=== PATIENT | female | born 1970 | race Caucasian/White ===

== ENCOUNTER → 2017-06-20 | Outpatient (CLI) | payer BC ==
--- NOTE | 2017-06-20 14:47 | US ---
EXAMINATION TYPE: US venous doppler duplex LE LT DATE OF EXAM: 06/20/2017 2:39 PM COMPARISON: NONE CLINICAL HISTORY: R60.0 Left leg edema. Pain and edema left leg SIDE PERFORMED: Left TECHNIQUE: The lower extremity deep venous system is examined utilizing real time linear array sonog bharath with graded compression, doppler sonography and color-flow sonography. VESSELS IMAGED: External Iliac Vein (EIV) Common Femoral Vein Deep Femoral Vein Greater Saphenous Vein * Femoral Vein Popliteal Vein Small Saphenous Vein * Proximal Calf Veins (* superficial vessels) Left Leg: No evidence of DVT IMPRESSION: 1. No deep venous thrombosis left lower extremity by ultrasound.
== END | disposition home or self-care (01) ==
LOC: RADUSWWP 14:08
PROVIDERS: ATTEND Family Medicine
DX: R60.0 Localized edema (principal)

== ENCOUNTER → 2017-07-28 | Outpatient (CLI) | payer BC ==
--- NOTE | 2017-07-29 09:14 | MM ---
Reason for exam: screening (asymptomatic). Last mammogram was performed 1 year ago. History: Patient is postmenopausal. Took hormonal contraceptives for 3 years beginning at age 15. Physical Findings: A clinical breast exam by your physician is recommended on an annual basis and results should be correlated with mammographic findings. MG Screening Mammo w CAD Bilateral CC and MLO view(s) were taken. Prior study comparison: July 26, 2016, bilateral MG screening mammo w CAD. May 18, 2014, bilateral MG screening mammo w CAD. There are scattered fibroglandular densities. Finding: There are typically benign round calcifications in both breasts. There is no discrete abnormality. ASSESSMENT: Benign, BI-RAD 2 RECOMMENDATION: Routine screening mammogram of both breasts in 1 year.
== END | disposition home or self-care (01) ==
LOC: RADMAMWWP 10:00
PROVIDERS: ATTEND Family Medicine
DX: Z12.31 Encounter for screening mammogram for malignant neoplasm of breast (principal)

== ENCOUNTER 2019-12-13 09:44 | Day surgery (SDC) | payer BC ==
[2019-12-08 16:22] VITALS: BMI 44.2
[~2019-12-13 09:44] MED LIST: LACTATED RINGERS 1,000 ML IV SCH; LIDOCAINE 1% 20 ML VIAL (10MG/ML) FOR IV START INTRADERMA PRN
[2019-12-13 10:48] VITALS: RESP 16; TEMP 98.5
[2019-12-13] MEDS ORDERED: PROPOFOL 10 MG/ML 20 ML VIAL IV ONE (11:53)
--- NOTE | 2019-12-13 12:13 | P.PCN ---
Date of Procedure: 12/13/19 Description of Procedure: BRIEF HISTORY: Patient is a 49-year-old female presenting for outpatient colonoscopy for screening for malignant neoplasm colon. Denies any change in bowel habits, abdominal pain or blood per rectum. No family history of colon cancer. No prior colonoscopies. PROCEDURE PERFORMED: Colonoscopy. PREOPERATIVE DIAGNOSIS: Screening for malignant neoplasm of the colon, no prior colonoscopies. ESTIMATED BLOOD LOSS: Minimal. IV sedation per Anesthesia. PROCEDURE: After informed consent was obtained, the patient, was brought into the endoscopy unit. IV sedation was administered by Anesthesia under continuous monitoring. Digital rectal examination was normal. Initially the Olympus CF-190 flexible video colonoscope was then inserted in the rectum, gradually advanced into the cecum without any difficulty. Careful examination was performed as the scope was gradually being withdrawn. Ileocecal valve and the appendiceal orifice were visualized and appeared normal. Prep was excellent. Mucosa of the cecum, ascending colon, transverse colon, descending colon, sigmoid colon, and rectum appeared normal. A few small diverticula noted in the sigmoid colon. Retroflexion was performed in the rectum and no lesions were seen. The patient tolerated the procedure well. IMPRESSION: Normal-appearing colon from rectum to cecum. Mild sigmoid diverticulosis. RECOMMENDATIONS: Findings of this examination were discussed with the patient. Okay to resume high-fiber diet. Okay to resume medications. Would recommend repeat colonoscopy in 10 years or sooner if signs or symptoms which for further evaluation develop.
[2019-12-13 12:38] VITALS: BP 138/70; PULSE 51
== END 2019-12-13 12:51 | disposition home or self-care (01) ==
LOC: ORWHC2ENDO 09:44
PROVIDERS: ATTEND Internal Medicine
DX: Z12.11 Encounter for screening for malignant neoplasm of colon (principal); K57.30 Diverticulosis of large intestine without perforation or abscess without bleeding; Z90.710 Acquired absence of both cervix and uterus; E66.01 Morbid (severe) obesity due to excess calories; Z68.41 Body mass index [BMI] 40.0-44.9, adult; F17.200 Nicotine dependence, unspecified, uncomplicated
CPT/HCPCS: J2704; G0121

== ENCOUNTER → 2020-03-30 | Outpatient (CLI) | payer BC ==
--- NOTE | 2020-04-04 11:02 | MM ---
Reason for exam: screening (asymptomatic). Last mammogram was performed 2 years and 8 months ago. History: Patient is postmenopausal. Took hormonal contraceptives for 3 years beginning at age 15. Physical Findings: A clinical breast exam by your physician is recommended on an annual basis and results should be correlated with mammographic findings. MG 3D Screening Mammo W/Cad Bilateral CC, MLO, and XCCL view(s) were taken. Prior study comparison: July 28, 2017, bilateral MG screening mammo w CAD. July 26, 2016, bilateral MG screening mammo w CAD. There are scattered fibroglandular densities. No significant changes when compared with prior studies. ASSESSMENT: Negative, BI-RAD 1 RECOMMENDATION: Routine screening mammogram of both breasts in 1 year.
== END | disposition home or self-care (01) ==
LOC: RADMAMWWP 11:15
PROVIDERS: ATTEND Family Medicine
DX: Z12.31 Encounter for screening mammogram for malignant neoplasm of breast (principal)
CPT/HCPCS: 77063; 77067

== ENCOUNTER → 2021-02-21 | Outpatient (CLI) | payer BC ==
--- NOTE | 2021-02-21 14:08 | US ---
EXAMINATION TYPE: US pelvic complete DATE OF EXAM: 02/21/2021 COMPARISON: CT 03/30/12, US 02/13/10 CLINICAL HISTORY: R10.2 PELVIC PAIN. LLQ "Popping" sensation, Hysterectomy, Left Oophorectomy TECHNIQUE: Transabdominal (TA). Transabdominal sonographic images of the pelvis were acquired. Tra nsvaginal sonographic images were medically necessary to better assess the following anatomy: Date of LMP: Hysterectomy 10 years ago EXAM MEASUREMENTS: Uterus: Surgically absent cm Endometrial Stripe: Surgically absent cm Right Ovary: ? 2.4 x 1.4 x 1.3 cm Left Ovary: Surgically absent cm 1. Uterus: Surgically absent 2. Endometrium: Surgically absent 3. Right Ovary: No masses seen. 4. Left Ovary: Surgically absent 5. Bilateral Adnexa: wnl 6. Posterior cul-de-sac: wnl IMPRESSION: Postoperative changes as noted.
== END | disposition home or self-care (01) ==
LOC: RADUSWWP 13:29
PROVIDERS: ATTEND Obstetrics & Gynecology
DX: R10.2 Pelvic and perineal pain (principal)
CPT/HCPCS: 76856

== ENCOUNTER → 2022-10-28 | Outpatient (CLI) | payer BC ==
--- NOTE | 2022-10-29 09:40 | XR ---
EXAMINATION TYPE: XR Hip Complete 2 views LT, XR knee complete 3 views bilateral DATE OF EXAM: 10/28/2022 COMPARISON: NONE HISTORY: 52-year-old female with pain FINDINGS: Left hip: Mild degenerative spurring at the left hip. Relative preservation of hip joint space. Addit ional degenerative change at the pubic symphysis. No acute fracture, subluxation, dislocation. Bilateral knees: Extensor mechanisms are intact on both sides. No joint effusion on either side. No a cute fracture, fixation, dislocation. IMPRESSION: 1. Left hip: Mild degenerative spurring. Additional osteitis pubis. No acute osseous abnormality seen . 2. Bilateral knees: No acute osseous abnormality seen.
--- NOTE | 2022-10-29 10:45 | US ---
EXAMINATION TYPE: US venous doppler duplex LE BI DATE OF EXAM: 10/28/2022 5:01 PM COMPARISON: NONE CLINICAL HISTORY: 52-year-old female R22.43 b/l lower extremity swelling/mass/lump. Pain bilateral le gs, worse on the left SIDE PERFORMED: bilateral TECHNIQUE: The lower extremity deep venous system is examined utilizing real time linear array sonog bharath with graded compression, doppler sonography and color-flow sonography. FINDINGS: VESSELS IMAGED: Common Femoral Vein Deep Femoral Vein Greater Saphenous Vein * Femoral Vein Popliteal Vein Small Saphenous Vein * Proximal Calf Veins (* superficial vessels) Technical limitations due to patient's body habitus Right Leg: No evidence of DVT Left Leg: no evidence of DVT IMPRESSION: No evidence for DVT within the bilateral lower extremities imaged from the groin to the upper calves.
== END | disposition home or self-care (01) ==
LOC: RADUSWWP 16:23
PROVIDERS: ATTEND Family Medicine
DX: M25.752 Osteophyte, left hip (principal); R22.43 Localized swelling, mass and lump, lower limb, bilateral
CPT/HCPCS: 73502; 93970

== ENCOUNTER → 2024-07-20 | Outpatient (CLI) | payer BC ==
--- NOTE | 2024-07-21 10:48 | MM ---
Reason for Exam: Screening (asymptomatic). Last mammogram was performed 4 year(s) and 4 month(s) ago. Patient History: Menarche at age 11. First Full-Term at age 15. Right ovary removed at age 42. Hysterectomy at age 42. Postmenopausal. Hormonal Contraceptives for 3 years from age 15 until age 18. Risk Values: Keeley 5 year model risk: 0.8%. NCI Lifetime model risk: 6.0%. Prior Study Comparison: 07/26/2016 Bilateral Screening Mammogram, [facility]. 07/28/2017 Bilateral Screening Mammogram, [facility]. 03/30/2020 Bilateral Screening Mammogram, [facility]. Tissue Density: There are scattered areas of fibroglandular density. Findings: Analyzed By CAD. Right breast: There is no suspicious group of microcalcifications or new suspicious mass. Left breast: There is no suspicious group of microcalcifications or new suspicious mass. Overall Assessment: Negative, BI-RAD 1 Management: Screening Mammogram of both breasts in [address] [facility] will attempt to contact patient to return for supplemental views and ultrasound if indicated. Patient should continue monthly self-breast exams. A clinical breast exam by your physician is recommended on an annual basis. This exam should not preclude additional follow-up of suspicious palpable abnormalities. Note on Keeley scores and lifetime risk: 1. A Keeley score greater than 3% is considered moderate risk. If this is the case, consider specialist referral to assess eligibility for a risk reducing agent. 2. If overall lifetime risk for the development of breast cancer is 20% or higher, the patient may qualify for future screening with alternating mammogram and breast MRI. [facility], , 07/21/2024 10:45 AM. Electronically signed and approved by: Gilbert Lopez DO
== END | disposition home or self-care (01) ==
LOC: RADMAMWWP 14:37
PROVIDERS: ATTEND Family Medicine
DX: Z12.31 Encounter for screening mammogram for malignant neoplasm of breast
CPT/HCPCS: 77063; 77067